=== PATIENT | female | born 1970 | race Caucasian/White ===

== ENCOUNTER 2023-09-16 06:20 | Day surgery (SDC) | payer OTHER, SELFPAY ==
[2023-08-21 13:32] VITALS: BMI 27.1
[2023-09-16 06:50] VITALS: BP 124/88; PULSE 73; RESP 16; TEMP 36.6; O2SAT 100; BMI 25.9
[2023-09-16] MEDS: LACTATED RINGERS 1,000 ML 150 ML IV CONT (06:58)
--- NOTE | 2023-09-16 07:12 | PM.HPGS ---
History of Present Illness History of Present Illness Consent: Risks, benefits, and alternatives have been discussed and questions answered. Patient agrees to proceed with procedure. Chief complaint: Neoplasm screening, Narrative: Micki Rojas is a 53 year old female presents for screening colonoscopy. Patient's current weight appetite is are normal. She denies abdominal pain. Patient has had no bleeding. Family history is noncontributory. Review of Systems Review of Systems: All systems reviewed & are unremarkable except as noted in HPI and below PMFSH Past Medical History Medical History (Updated 09/16/23 @ 07:13 by Rajesh Arellano MD) Arthralgia Dyslipidemia Elevated liver enzymes Insomnia Vitamin D deficiency Surgical History Surgical History History of hysterectomy [id number] due to endometriosis Family History Family History Father Arthritis Mother Arthritis Diabetes mellitus Heart disease Hypertension [place] Grandparent Diabetes mellitus Heart disease Social History Social History Smoking status: Current every day smoker Tobacco type: e-cigarettes/vaping Smoking end date: 06/10/15 Alcohol intake: current Alcohol use details: 0-5 per week Substance use: never Substance use type: does not use Lack of Transportation: No Lack of Food: Never True Current Housing: I Have Housing Concerned About Future Housing: No Difficulty Paying Gas/Electric Bills: No Difficulty Paying for Meds: No Currently Unemployed: No Education: Decline to Answer Difficulty w/ Childcare or Family Care: No Living arrangements: with family Occupation/Education: occupation Gender identity (if verbalized by the patient): Female Sexual Orientation (if Verbalized by the Patient): Straight or Heterosexual Meds Home Medications and Allergies Home Medications Medication Instructions Recorded Confirmed Type rosuvastatin 10 mg tablet See Rx Instructions .Route 08/19/23 09/16/23 Rx .COMPLEX #90 tabs zolpidem 10 mg tablet (Ambien) 10 mg PO QHS insomnia #90 tabs 08/19/23 09/16/23 Rx Allergies Allergy/AdvReac Type Severity Reaction Status Date / Time No Known Allergies Allergy Unknown Verified 09/16/23 06:39 Vital Signs Vital Signs - 24 hr 09/16/23 06:50 Temperature 97.9 F Pulse Rate 73 Respiratory Rate 16 Blood Pressure 124/88 Pulse Oximetry 100 Oxygen Delivery Room Air Exam Narrative: Physical exam reveals patient to be alert. Vital Signs stable. HEEN T exam is unremarkable. Patient is anicteric. Lungs are to auscultation and to percussion . heart is without murmur or extra sounds. Abdomen bowel sounds are present soft nontender with no organomegaly. Digital external rectal exam normal. Assessment and Plan Assessment and plan (1) Screen for colon cancer: Code(s): Z12.11 - Encounter for screening for malignant neoplasm of colon Status: Acute Assessment and Plan: Patient presents for screening colonoscopy. She appears to be at average risk for colon polyps. Further recommendations may be given after endoscopy.
--- NOTE | 2023-09-16 07:14 | WPDANESEPPF ---
Anes - Initial Pre Proc Eval Procedure: Operation Date: 09/16/23 08:00 Proposed Procedures p Screening Colonoscopy - Rajesh Arellano MD Date/Time: 09/16/23 07:14 Surgeon: Rajesh Arellano MD Pre Op Diagnosis: Neoplasm screening, Patient Data Age: 53 Gender: F Height: 1.63 m Weight: 68.7 kg Last Vital Signs Temp 36.6 C 09/16/23 06:50 Pulse 73 09/16/23 06:50 Resp 16 09/16/23 06:50 BP 124/88 09/16/23 06:50 Pulse Ox 100 09/16/23 06:50 O2 Del Method Room Air 09/16/23 06:50 Allergies Allergy/AdvReac Type Severity Reaction Status Date / Time No Known Allergies Allergy Unknown Verified 09/16/23 06:39 Home Medications Medication Instructions Recorded Confirmed Type rosuvastatin 10 mg tablet See Rx Instructions .Route 08/19/23 09/16/23 Rx .COMPLEX #90 tabs zolpidem 10 mg tablet (Ambien) 10 mg PO QHS insomnia #90 tabs 08/19/23 09/16/23 Rx Patient hx anesthesia problems: none Family hx anesthesia problems: none Results Review: All pre-operative results and documents have been reviewed as part of the pre-operative evaluation. [facility] Past Medical History Medical History Arthralgia Dyslipidemia Elevated liver enzymes Insomnia Vitamin D deficiency Surgical History Surgical History History of hysterectomy [id number] due to endometriosis Family History Family History Father Arthritis Mother Arthritis Diabetes mellitus Heart disease Hypertension [place] Grandparent Diabetes mellitus Heart disease Social History Social History Smoking status: Current every day smoker Tobacco type: e-cigarettes/vaping Smoking end date: 06/10/15 Alcohol intake: current Alcohol use details: 0-5 per week Substance use: never Substance use type: does not use Lack of Transportation: No Lack of Food: Never True Current Housing: I Have Housing Concerned About Future Housing: No Difficulty Paying Gas/Electric Bills: No Difficulty Paying for Meds: No Currently Unemployed: No Education: Decline to Answer Difficulty w/ Childcare or Family Care: No Living arrangements: with family Occupation/Education: occupation Gender identity (if verbalized by the patient): Female Sexual Orientation (if Verbalized by the Patient): Straight or Heterosexual Anes - Eval Final PreProcedure Day of Procedure 09/16/23 07:14 Patient weight: overweight Heart: regular rate and rhythm Lungs: clear to auscultation Airway: Mallampati scale class II Neurological: alert and oriented Last oral intake: >/= 8 hours ASA classification: II Emergent: no Anesthetic plan: proceed Anesthesia type and monitoring: general GIVS and standard monitoring Results Review: All pre-operative results and documents have been reviewed as part of the pre-operative evaluation. Informed Consent: The patient's anesthetic plan and its attendant risks and benefits were discussed with the patient/family/POA. Questions were solicited and answers provided to the satisfaction of the patient/family/POA.
[2023-09-16 08:25] VITALS: BP 106/66; PULSE 70; RESP 16; O2SAT 100
[2023-09-16 08:35] VITALS: BP 116/76; PULSE 57; RESP 16; O2SAT 100
[2023-09-16 08:45] VITALS: BP 120/77; PULSE 60; RESP 16; O2SAT 100
--- NOTE | 2023-09-16 10:20 | WPDANESPN ---
Anes - Prog Note Post-Op Date/Time: 09/16/23 10:20 Cardiovascular status: normal Respiratory status: normal Airway patency: baseline Mental status: baseline Post-Op hydration status: normal Vital Signs: Last Vital Signs Temp 36.6 C 09/16/23 06:50 Pulse 60 09/16/23 08:45 Resp 16 09/16/23 08:45 BP 120/77 09/16/23 08:45 Pulse Ox 100 09/16/23 08:45 O2 Del Method Room Air 09/16/23 08:45 Pain Score (VAS): 0/10 I/O: Intake & Output 09/15/23 09/16/23 09/16/23 23:59 07:59 15:59 Intake Total 500 Balance 500 Patient Feedback: Patient satisfied with anesthetic care.
== END 2023-09-16 08:57 | disposition home or self-care (01) ==
PROVIDERS: PCP Physician Assistant Medical; Visit Provider Internal Medicine Gastroenterology
PROC: 0DJD8ZZ Inspection of Lower Intestinal Tract, Via Natural or Artificial Opening Endoscopic (ICD-10-PCS; CPT 45378; principal; 2023-09-16 08:00)
DX: Z12.11 Encounter for screening for malignant neoplasm of colon (principal); D12.0 Benign neoplasm of cecum; K57.30 Diverticulosis of large intestine without perforation or abscess without bleeding; K64.8 Other hemorrhoids
CPT/HCPCS: 45380

== ENCOUNTER 2023-09-16 07:00 | Outpatient (NON) | payer OTHER, SELFPAY | END 2023-09-16 07:01 | disposition home or self-care (01) | LOC: ANHLAB 09-17 08:53 | PROVIDERS: PCP Physician Assistant Medical; Visit Provider Internal Medicine Gastroenterology | DX: Z12.11 Encounter for screening for malignant neoplasm of colon (principal) | CPT/HCPCS: 88305 ==